=== PATIENT | male | born 1945 | race Caucasian/White ===

== ENCOUNTER → 2016-07-20 | Outpatient (CLI) | payer OTHER, MEDICARE | LOC: BMCIMAGING 12:46 | PROVIDERS: ATTEND Urology | DX: N28.1 Cyst of kidney, acquired (principal); Z85.51 Personal history of malignant neoplasm of bladder ==

== ENCOUNTER → 2017-03-27 | Outpatient (CLI) | payer OTHER, MEDICARE | LOC: FIMAGING 13:24 | PROVIDERS: ATTEND Registered Nurse | DX: J43.9 Emphysema, unspecified (principal) ==

== ENCOUNTER → 2017-06-05 | Outpatient (CLI) | payer OTHER, MEDICARE | LOC: FIMAGING 11:36 | PROVIDERS: ATTEND Family Medicine | DX: M19.012 Primary osteoarthritis, left shoulder (principal) ==

== ENCOUNTER → 2018-03-09 | Outpatient (CLI) | payer OTHER, MEDICARE | LOC: BHFA 09:15 | PROVIDERS: ATTEND Internal Medicine Cardiovascular Disease | DX: I27.20 Pulmonary hypertension, unspecified (principal) ==

== ENCOUNTER 2018-05-28 22:57 | Inpatient (IN) | payer OTHER, MEDICARE ==
[2018-05-28] MEDS ORDERED: IPRATROPIUM/ALBUTEROL 3 ML DEYVIAL ONE (23:03)
[2018-05-28] MEDS ORDERED: NS 1,000 ML IV ONE ×2 (23:05→23:19)
--- NOTE | 2018-05-28 23:05 | EDPHY ---
H & P Time Seen by Provider: 05/28/18 23:03 HPI/ROS: HPI CHIEF COMPLAINT: Shortness of breath HISTORY OF PRESENT ILLNESS: Patient is a 73-year-old male, presents emergency room by private vehicle shortness of breath. He states on he became short of breath with a cough. Rather nonproductive. He has not been sleeping as he has been having body aches and chills. States he does have some chest tightness. He has wheezing. Arrived to the emergency room at triage she had an O2 sat of 50%. He was immediately brought back to ER room 10. Right greeted him and placed on a non-rebreather. He does wear nighttime oxygen 2-3 L at night. Past Medical History: History of COPD, thyroid disease Past Surgical History: No recent surgery Social History: Occasional alcohol use, denies drugs or tobacco. Family History: Noncontributory ROS REVIEW OF SYSTEMS: 10 Systems were reviewed and negative with the exception of the elements mentioned in the history of present illness. Exam Constitutional triage nursing summary reviewed, vital signs reviewed, awake/ alert. 50% room air saturation respiratory distress, tachycardic 130s Eyes normal conjunctivae and sclera, EOMI, PERRLA. HENT normal inspection, atraumatic, moist mucus membranes, no epistaxis, neck supple/ no meningismus, no raccoon eyes. Respiratory respiratory distress, tachypnea, wheezing throughout lung [place]. Cardiovascular tachycardia, regular rhythm, no murmur, no edema, distal pulses normal. Gastrointestinal soft, non-tender, no rebound, no guarding, normal bowel sounds, no distension, no pulsatile mass. Genitourinary no CVA tenderness. Musculoskeletal no midline vertebral tenderness, full range of motion, no calf swelling, no tenderness of extremities, no meningismus, good pulses, neurovascularly intact. Skin pink, warm, & dry, no rash, skin atraumatic. Neurologic awake, alert and oriented x 3, AAOx3, moves all 4 extremities equally, motor intact, sensory intact, CN II-XII intact, normal cerebellar, normal vision, normal speech. Psychiatric normal mood/affect. Heme/Lymph/Immune no lymphadenopathy. Differential Diagnosis: Includes but is not limited to in a particular order pneumonia, influenza, PE, ACS, respiratory distress, COPD exacerbation Medical Decision Making: Plan for this patient IV establishment x2, electronic device monitor, EKG, supplemental oxygen, resuscitated for respiratory distress, DuoNeb breathing treatment, IV fluids, IV Solu-Medrol, check blood cultures lactic acid influenza. Patient will need to be admitted to the hospital. Re-evaluation: EKG interpretation by me on record in [facility] system. Impression time of EKG 2304, sinus tach 132 right ventricular hypertrophy present, ST depression noted to [address] depression noted V4 V5 V6 most likely strain pattern due to tachycardia and hypoxia. No ST elevation 2316: Patient here in respiratory distress with a room air saturation of 50% upon arrival. Tachypneic in the 30s, tachycardic in the 130s to 140s. Wheezing on exam. Will aggressively treat for respiratory distress with COPD exacerbation rule out pneumonia. D-dimer elevated 3.5. Given the patient's profound hypoxia, tachycardia, right heart strain on EKG will proceed with CT angiogram of the chest to make sure he does not Have pulmonary emboli. ED x-ray chest reviewed by myself this shows a left lower lobe infiltrate. Blood cultures have been pulled. IV Rocephin and IV azithromycin as been given. Critical Care: Total Critical Care Time Spent Managing this Patient: 65Minutes. This time was spent Exclusively with this patient. This Care was exclusive of procedures. The Organ System/life at risk was pulmonary. This Patient was in Critical Condition because severe hypoxia 50% room air sat , respiratory distress, tachycardia Plan for admission to the hospital. Patient re-examined at 12:01 a.m. Patient doing much improved, he is on 6 L nasal cannula, heart rate down to 116. O2 sat 92% on 6 L. Blood pressure 125/ 70. CT angiogram of the chest faxed me by direct Radiology at time 1:55 a.m. This shows numerous findings and please see full report. Pronounced diffuse centrilobular emphysema Small loculated pneumothorax along the left major fissure with abnormal lobular soft tissue along its margins raising the possibility of pleural metastases or lobular infectious etiology such as fungus ball Opacity in left lower lobe suspicious for aspiration and/or pneumonia Nonspecific areas of spiculated density in the central left upper lobe anterior left upper lobe anterior mid right medial lobe areas may reflect post inflammatory change scarring or areas of active infection primary pulmonary malignancy cannot be excluded Prominent hilar lymph nodes bilaterally PET imaging would be useful Coronary artery disease Atherosclerosis Patient presented the emergency room in respiratory distress with an O2 sat of 50% on room air by private vehicle in fact he came in [facility]. He arrives in respiratory distress breathing 30-40 times per minute, room air saturation was 50%. Wheezing audible at bedside. Patient was quickly assessed in ER room 10 and had a chest is shows left lower lobe pneumonia. Received IV Rocephin IV as a throat, IV Solu-Medrol, DuoNeb breathing treatment and supplemental oxygen. He was placed on 6 L nasal cannula after being on a non-rebreather for some time. He improved rather well over the evening. He was admitted to the ICU we were able to step-down to PCU. He continues to do well. He had a CT scan due to positive D-dimer this showed pneumonia additionally please see full dictation of CT report for numerous other findings. Admitted to the hospitalist service in stable condition. Source: Patient - Medical/Surgical History Hx Asthma: No Hx Chronic Respiratory Disease: No Hx Diabetes: No Hx Cardiac Disease: No Hx Renal Disease: No Hx Cirrhosis: No Hx Alcoholism: No Hx HIV/AIDS: No Hx Splenectomy or Spleen Trauma: No Other PMH: FLUISD IN LUNGS - Social History Smoking Status: Former smoker Constitutional: Initial Vital Signs Temperature (C) 37.5 C 05/28/18 23:01 Heart Rate 137 H 05/28/18 23:01 Respiratory Rate 30 H 05/28/18 23:01 Blood Pressure 124/76 H 05/28/18 23:01 O2 Sat (%) 95 05/28/18 23:01 O2 Delivery Mode Nasal Cannula O2 (L/minute) 3 Allergies/Adverse Reactions: No Known Allergies Allergy (Verified 05/29/18 09:01) Home Medications: Medication Instructions Recorded Levothyroxine [Synthroid 100 mcg 100 mcg PO DAILY06 10/23/15 (*)] Fluticasone/Salmeter 500/50Mcg 1 puffs IH BID 05/29/18 [Advair 500/50 (*)] Hydrochlorothiazide [HCTZ (*)] 25 mg PO DAILY 05/29/18 Medical Decision Making - Diagnostics Imaging Results: Imaging Impressions Chest X-Ray 05/28/18 23:05 Impression: Findings suspicious for pneumonia are seen superimposed upon underlying airways disease. Patient is scheduled for a follow-up CT scan of the chest. - Data Points Laboratory Results: Laboratory Results 05/29/18 11:00 05/29/18 11:00 05/29/18 05/29/18 11:00 11:00 WBC 10.29 10^3/uL H 10^3/uL (3.80-9.50) RBC 4.89 10^6/uL 10^6/uL (4.40-6.38) Hgb 14.0 g/dL g/dL (13.7-17.5) Hct 41.3 % % (40.0-51.0) MCV 84.5 fL fL (81.5-99.8) MCH 28.6 pg pg (27.9-34.1) MCHC 33.9 g/dL g/dL (32.4-36.7) RDW 13.3 % % (11.5-15.2) Plt Count 217 10^3/uL 10^3/uL (150-400) MPV 9.9 fL fL (8.7-11.7) Neut % (Auto) 92.0 % H % (39.3-74.2) Lymph % (Auto) 6.0 % L % (15.0-45.0) [place] % (Auto) 1.6 % L % (4.5-13.0) Eos % (Auto) 0.0 % L % (0.6-7.6) Baso % (Auto) 0.1 % L % (0.3-1.7) Nucleat RBC Rel Count 0.0 % % (0.0-0.2) Absolute Neuts (auto) 9.47 10^3/uL H 10^3/uL (1.70-6.50) Absolute Lymphs (auto) 0.62 10^3/uL L 10^3/uL (1.00-3.00) Absolute Monos (auto) 0.16 10^3/uL L 10^3/uL (0.30-0.80) Absolute Eos (auto) 0.00 10^3/uL L 10^3/uL (0.03-0.40) Absolute Basos (auto) 0.01 10^3/uL L 10^3/uL (0.02-0.10) Absolute Nucleated RBC 0.00 10^3/uL 10^3/uL (0-0.01) Immature Gran % 0.3 % % (0.0-1.1) Immature Gran # 0.03 10^3/uL 10^3/uL (0.00-0.10) Sodium 134 mEq/L L mEq/L (135-145) Potassium 3.7 mEq/L mEq/L (3.5-5.2) Chloride 99 mEq/L mEq/L (97-110) Carbon Dioxide 26 mEq/l mEq/l (22-31) Anion Gap 9 mEq/L mEq/L (6-14) BUN 21 mg/dL mg/dL (7-23) Creatinine 0.7 mg/dL mg/dL (0.7-1.3) Estimated GFR > 60 Glucose 246 mg/dL H mg/dL (70-100) Calcium 8.7 mg/dL mg/dL (8.5-10.4) Microbiology Results: MICROBIOLOGY 05/28/18 02:39 Nasal, Sinus - Swab Respiratory Panel (PCR) - Final No Organism Detected By Pcr Medications Given: Albuterol/Ipratropium (Duoneb) 3 ml IH QID EMMA Stop: 11/25/18 05:59 Last Admin: 05/29/18 21:16 Dose: 3 ml Azithromycin (Zithromax) 250 mg PO DAILY [facility] PRN Reason: Protocol Stop: 06/28/18 08:59 Last Admin: 05/29/18 09:03 Dose: 250 mg Enoxaparin Sodium (Lovenox) 40 mg SC DAILY EMMA Stop: 11/25/18 08:59 Last Admin: 05/29/18 11:04 Dose: 40 mg Ceftriaxone Sodium/Dextrose (Rocephin 1 Gm (Premix)) 50 mls @ 100 mls/hr IV DAILY [facility]MA PRN Reason: Protocol Stop: 06/28/18 08:59 Last Admin: 05/29/18 11:08 Dose: 50 mls Prednisone (Prednisone) 40 mg PO DAILY EMMA Stop: 11/25/18 08:59 Last Admin: 05/29/18 09:02 Dose: 40 mg Fluticasone/Salmeterol (Advair) 1 puffs IH BID EMMA Stop: 11/25/18 20:59 Last Admin: 05/29/18 21:23 Dose: 1 puffs Discontinued Medications Acetaminophen (Tylenol) 1,000 mg PO EDNOW ONE Stop: 05/28/18 23:21 Last Admin: 05/28/18 23:27 Dose: 1,000 mg Albuterol/Ipratropium (Duoneb) 3 ml IH EDNOW ONE Stop: 05/28/18 23:07 Last Admin: 05/28/18 23:08 Dose: 3 ml Furosemide (Lasix) 20 mg PO ONCE ONE Stop: 05/29/18 17:29 Last Admin: 05/29/18 18:26 Dose: 20 mg Sodium Chloride (Ns) 1,000 mls @ 0 mls/hr IV EDNOW ONE; Wide Open PRN Reason: Protocol Stop: 05/28/18 23:06 Last Admin: 05/28/18 23:08 Dose: 1,000 mls Azithromycin 500 mg/ Sodium (Chloride) 255 mls @ 255 mls/hr IV EDNOW ONE PRN Reason: Protocol Stop: 05/29/18 00:18 Last Admin: 05/28/18 23:55 Dose: 255 mls Ceftriaxone Sodium 2 gm/ (Sodium Chloride) 50 mls @ 100 mls/hr IV EDNOW ONE PRN Reason: Protocol Stop: 05/28/18 23:48 Last Admin: 05/28/18 23:26 Dose: 50 mls Sodium Chloride (Ns) 1,000 mls @ 0 mls/hr IV ONCE ONE PRN Reason: Wide Open Stop: 05/28/18 23:20 Last Admin: 05/28/18 23:28 Dose: 1,000 mls Methylprednisolone Sodium Succinate (Solu-Medrol) 125 mg IVP EDNOW ONE Stop: 05/28/18 23:07 Last Admin: 05/28/18 23:14 Dose: 125 mg Potassium Chloride (Klor-Con) 30 meq PO ONCE ONE PRN Reason: Protocol Stop: 05/29/18 20:04 Last Admin: 05/29/18 20:32 Dose: 30 meq Point of Care Test Results: Chemistry 05/28/18 23:21 POC Troponin I 0.03 ng/mL ng/mL (0.00-0.08) Departure - Departure Disposition: [facility] Inpatient Acute Clinical Impression: Hypoxia, Respiratory distress, Tachypnea, Acute respiratory failure with hypoxia Pneumonia Qualifiers: Pneumonia type: due to unspecified organism Laterality: unspecified laterality Lung location: unspecified part of lung Qualified Code(s): J18.9 - Pneumonia, unspecified organism Fever Qualifiers: Fever type: due to other condition Qualified Code(s): R50.81 - Fever presenting with conditions classified elsewhere COPD (chronic obstructive pulmonary disease) Qualifiers: COPD type: unspecified COPD Qualified Code(s): J44.9 - Chronic obstructive pulmonary disease, unspecified Condition: Critical
[2018-05-28] MEDS ORDERED: IPRATROPIUM/ALBUTEROL 3 ML DEYVIAL IH ONE (23:06)
[2018-05-28] MEDS ORDERED: methylPREDNISolone SOD SUCC 125 MG/2 ML VIAL IVP ONE (23:06)
[2018-05-28] MEDS ORDERED: AZITHROMYCIN IV 500 MG in NS 250 ML IV ONE (23:19)
[2018-05-28] MEDS ORDERED: ACETAMINOPHEN 500 MG TAB PO ONE (23:20)
[2018-05-28] MEDS ORDERED: cefTRIAXone 1 GM/DEXTROSE 1 GM/50 ML BAG IV ONE (23:24)
[2018-05-28 23:28] LABS: PLATELET COUNT 249 10^3/uL (150-400)
[2018-05-28 23:54] LABS: INR 1.1 (0.83-1.16); PROTIME(PATIENT) 13.8 SEC (12.0-15.0)
[2018-05-29] MEDS ORDERED: ONDANSETRON DISINTEGRATING 4 MG TAB PO PRN (00:08)
[2018-05-29] MEDS ORDERED: ALBUTEROL 3 ML DEYVIAL IH PRN (00:08)
[2018-05-29] MEDS ORDERED: ONDANSETRON 4 MG/2 ML VIAL IVP PRN (00:08)
[2018-05-29] MEDS ORDERED: ACETAMINOPHEN 325 MG TAB PO PRN (00:08)
[2018-05-29] MEDS ORDERED: IOPAMIDOL (ISOVUE-370) 150 ML BTL IV ONE (00:36)
--- NOTE | 2018-05-29 01:24 | PDGENHP ---
History and Physical - Chief Complaint Shortness of breath - History of Present Illness 73 yo M w/ hx of COPD presents with shortness of breath. The patient first noted body aches after 4 days ago. Over the last 4 days he then developed progressive SOB and dry cough. Tonight he thought he was hallucinating when he closed his eyes, suspected severe hypoxia, and came in to the ED for evaluation. Upon arrival to the ED he was indeed significantly hypoxic as well as febrile and wheezing. He improved significantly with steroids and nebulizer treatments. CXR demonstrates subtle LLL infiltrate. He is being admitted for presumed pneumonia and COPD exacerbation. Case discussed with ED physician Dr. Martinez; records reviewed and summarized above. History Information - Allergies/Home Medication List Allergies/Adverse Reactions: No Known Allergies Allergy (Unverified 10/23/15 12:08) Home Medications: Hydrochlorothiazide [HCTZ (*)] 12.5 mg PO DAILY 10/23/15 [Last Taken 10/23/15] Levothyroxine [Synthroid 100 mcg (*)] 100 mcg PO DAILY06 10/23/15 [Last Taken ] I have personally reviewed and updated: family history, medical history - Past Medical History COPD - Surgical History Additional surgical history: Bladder surgery - Family History Positive for: stroke - Social History Smoking Status: Former smoker Review of Systems Review of Systems: ROS: 10pt was reviewed & negative except for what was stated in HPI & below Physical Exam Physical Exam: Temp Pulse Resp BP Pulse Ox 37.0 C 110 H 28 H 125/70 H 91 L 05/28/18 23:55 05/29/18 00:21 05/29/18 00:21 05/29/18 00:21 05/29/18 00:21 O2 (L/minute) 6 Constitutional: no apparent distress, not in pain Eyes: PERRL, EOMI Ears, Nose, Mouth, Throat: moist mucous membranes, no oral mucosal ulcers Cardiovascular: regular rate and rhythym, no murmur, rub, or gallop Respiratory: no respiratory distress, expiratory wheeze (Mild) Skin: warm, normal color Musculoskeletal: full muscle strength, no muscle tenderness Neurologic: AAOx3, CN II-XII Intact Psychiatric: interacting appropriately, not anxious Lab Data & Imaging Review 05/28/18 23:12 05/28/18 23:12 WBC 9.49 10^3/uL (3.80-9.50) 05/28/18 23:12 RBC 5.65 10^6/uL (4.40-6.38) 05/28/18 23:12 Hgb 16.1 g/dL (13.7-17.5) 05/28/18 23:12 Hct 47.4 % (40.0-51.0) 05/28/18 23:12 MCV 83.9 fL (81.5-99.8) 05/28/18 23:12 MCH 28.5 pg (27.9-34.1) 05/28/18 23:12 MCHC 34.0 g/dL (32.4-36.7) 05/28/18 23:12 RDW 13.2 % (11.5-15.2) 05/28/18 23:12 Plt Count 249 10^3/uL (150-400) 05/28/18 23:12 MPV 9.9 fL (8.7-11.7) 05/28/18 23:12 Neut % (Auto) 86.2 % (39.3-74.2) H 05/28/18 23:12 Lymph % (Auto) 7.2 % (15.0-45.0) L 05/28/18 23:12 [place] % (Auto) 5.7 % (4.5-13.0) 05/28/18 23:12 Eos % (Auto) 0.3 % (0.6-7.6) L 05/28/18 23:12 Baso % (Auto) 0.4 % (0.3-1.7) 05/28/18 23:12 Nucleat RBC Rel Count 0.0 % (0.0-0.2) 05/28/18 23:12 Absolute Neuts (auto) 8.18 10^3/uL (1.70-6.50) H 05/28/18 23:12 Absolute Lymphs (auto) 0.68 10^3/uL (1.00-3.00) L 05/28/18 23:12 Absolute Monos (auto) 0.54 10^3/uL (0.30-0.80) 05/28/18 23:12 Absolute Eos (auto) 0.03 10^3/uL (0.03-0.40) 05/28/18 23:12 Absolute Basos (auto) 0.04 10^3/uL (0.02-0.10) 05/28/18 23:12 Absolute Nucleated RBC 0.00 10^3/uL (0-0.01) 05/28/18 23:12 Immature Gran % 0.2 % (0.0-1.1) 05/28/18 23:12 Immature Gran # 0.02 10^3/uL (0.00-0.10) 05/28/18 23:12 PT 13.8 SEC (12.0-15.0) 05/28/18 23:12 INR 1.10 (0.83-1.16) 05/28/18 23:12 APTT 31.2 SEC (23.0-38.0) 05/28/18 23:12 D-Dimer 3.54 ug/mLFEU (0.00-0.50) H 05/28/18 23:12 VBG Lactic Acid 1.7 mmol/L (0.7-2.1) 05/28/18 23:12 Sodium 131 mEq/L (135-145) L 05/28/18 23:12 Potassium 3.4 mEq/L (3.5-5.2) L 05/28/18 23:12 Chloride 90 mEq/L (97-110) L 05/28/18 23:12 Carbon Dioxide 27 mEq/l (22-31) 05/28/18 23:12 Anion Gap 14 mEq/L (6-14) 05/28/18 23:12 BUN 31 mg/dL (7-23) H 05/28/18 23:12 Creatinine 1.1 mg/dL (0.7-1.3) 05/28/18 23:12 Estimated GFR > 60 05/28/18 23:12 Glucose 157 mg/dL (70-100) H 05/28/18 23:12 Calcium 9.5 mg/dL (8.5-10.4) 05/28/18 23:12 Magnesium 1.9 mg/dL (1.6-2.3) 05/28/18 23:12 Total Bilirubin 1.2 mg/dL (0.1-1.4) 05/28/18 23:12 Conjugated Bilirubin 0.6 mg/dL (0.0-0.5) H 05/28/18 23:12 Unconjugated Bilirubin 0.6 mg/dL (0.0-1.1) 05/28/18 23:12 AST 38 IU/L (17-59) 05/28/18 23:12 ALT 41 IU/L (21-72) 05/28/18 23:12 Alkaline Phosphatase 108 IU/L (38-126) 05/28/18 23:12 POC Troponin I 0.03 ng/mL (0.00-0.08) 05/28/18 23:21 NT-Pro-B Natriuret Pep 414 pg/mL (0-125) H 05/28/18 23:12 Total Protein 7.6 g/dL (6.3-8.2) 05/28/18 23:12 Albumin 4.4 g/dL (3.5-5.0) 05/28/18 23:12 Procalcitonin 0.23 ng/mL (0.02-0.10) H 05/28/18 23:12 Nasal Influenza A PCR NEGATIVE FOR FLU A (NEGATIVE) 05/28/18 23:12 Nasal Influenza B PCR NEGATIVE FOR FLU B (NEGATIVE) 05/28/18 23:12 Visualized and Interpreted Chest x-ray results: Yes Chest X-Ray results: infiltrate (LLL) Visualized and Interpreted EKG results: Yes EKG Interpretation: Positive for: other (Sinus tach) Assessment & Plan Assessment: 73 yo M w/ COPD presents with COPD exacerbation and pneumonia. Plan: 1. COPD with acute exacerbation - Presents with severe respiratory distress, hypoxia, and evidence of pneumonia. Severe wheezing noted on arrival significantly improved with nebulizer treatments and steroids. - Prednisone, azithromycin x5 days - Duonebs QID, albuterol q2h PRN - CTPE ordered to evaluate elevated D-dimer 2. Sepsis 2/2 pneumonia - CXR (personally reviewed/interpreted) with subtle LLL infiltrate. Patient febrile, tachypneic, and tachycardic on admission (3/4 SIRS criteria). - S/p 30 mL/kg fluid bolus - CTX/Azithro for CAP coverage - Blood cultures, respiratory PCR, procalcitonin ordered 3. AHRF - 2/2 COPD exacerbation and pneumonia. Initially requiring ~6 L/min O2 with severe respiratory distress but improving significantly with treatment. - Acute treatment as noted above - Incentive spirometry ordered - Continue O2 PRN to maintain O2 sats > 89% 4. Hyponatremia - Likely due to dehydration and infection. - Repeat BMP after IVF Diet - Regular Code - Full Ppx - LMWH Dispo - Admit under observation status
--- NOTE | 2018-05-29 07:45 | CPEKG ---
Test Reason : OPEN Blood Pressure : / mmHG Vent. Rate : 132 BPM Atrial Rate : 133 BPM P-R Int : 135 ms QRS Dur : 097 ms QT Int : 308 ms P-R-T Axes : 051 108 -10 degrees QTc Int : 457 ms Sinus tachycardia Probable left atrial enlargement Consider right ventricular hypertrophy Borderline repol abnrm, inferolateral leads Confirmed by Stanford Smalls ([id number]) on 05/29/2018 7:44:07 AM Referred By: Stanford Samlls Confirmed By:Stanford Smalls
[2018-05-29] MEDS ORDERED: AZITHROMYCIN 250 MG TAB PO ONE (08:59)
[2018-05-29] MEDS: predniSONE 20 MG TAB PO SCH (09:02)
[2018-05-29] MEDS: AZITHROMYCIN 250 MG TAB PO SCH (09:03)
[2018-05-29] MEDS: IPRATROPIUM/ALBUTEROL 3 ML DEYVIAL IH SCH ×4 (09:04→21:16)
[2018-05-29] MEDS: ENOXAPARIN 40 MG/0.4 ML SYR SC SCH (11:04)
[2018-05-29 11:09] LABS: PLATELET COUNT 217 10^3/uL (150-400)
[2018-05-29] MEDS ORDERED: FUROSEMIDE 20 MG TAB PO ONE (17:28)
[2018-05-29] MEDS ORDERED: PROTOCOL MAGNESIUM 1 DOSE IV PRN (17:36)
[2018-05-29] MEDS ORDERED: PROTOCOL POTASSIUM 1 DOSE MISC PRN (17:36)
--- NOTE | 2018-05-29 17:47 | HOSPPROG ---
Hospitalist Progress Note Assessment/Plan: Evening hospitalist rounds I spent 40 min at bedside with the patient today in addition to the time spent earlier by Dr. Mari Foster on his admission activities In addition I reviewed his imaging studies in detail with Dr. Ismael Berman and reviewed his clinical picture with Dr. Berman The patient does feel notably better with less cough, less aches, and less dyspnea. He does tell me that he has had over many years time frequent episodes of bronchitis. He also tells me that he has been getting gradually more short of breath and has been noticed some weight gain along with swelling in his ankles and feeling bloated in his abdomen at times. I reviewed images from his CT scan chest today in addition to comparing those images with CT scan of chest in 2016 at this hospital. Reviewing back to 2016 he did have what appears to be some early bronchiectasis changes in both lungs. There is very mild emphysema apparent at that time in lung bases. At this time there is pneumonia in the left lower lobe but there is also what appears to be quite a bit of scarring from bronchiectasis in the left lower lobe, significant progression of bronchiectatic changes in both lungs, and progression of emphysema. In addition there is also an air pocket in trapped in the fissure between the left upper in lower lobes and within that air pocket there is focal rounded thickening 1 lesion on the superior aspect of left lower lobe and 1 on the inferior aspect of left upper lobe. This is a very unusual appearance. It causes uncertain. Consider possible infection such as fungal or other unusual infection, or perhaps inflammatory or malignant changes of the pleura membrane in that area. I would consider the possibility that he popped a small emphysematous bleb in to the interlobar fissure space and this was the source of the air, however the air could also come from a microorganism or otherwise. There is also a spiculated type lesion at the anterior left lung, subpleural, however this looks to me little change from 2016 overall. DIAGNOSES: * Acute community-acquired pneumonia * Progression of bronchiectasis and chronic bronchitis with some scarring at the left lung base since 2016 * Worsening of emphysema since [address] scan * Development of right-sided congestive heart failure suggesting likely pulmonary hypertension * Development of a air pocket in the fissure between left upper and lower lobes with concerning thickening of pleura suggesting potentially atypical infection or malignancy * Adenopathy of uncertain duration, likely related to the issues mentioned above * Spiculated lesion left lung anteriorly that does not appear much change since 2016 likely largely scar and related to bronchiectasis but other possible etiologies exist * Hyperglycemia likely largely related to his steroid use at this time PLANS: * I reviewed all the above in detail with the patient * I reviewed all the above in detail with Dr. Ismael Berman * Continue current antibiotics * Will decrease steroid dose at this time * Will change his hydrochlorothiazide to Lasix * Begin 2 g sodium diet * Increase activity as able * Dr. Berman will see the patient; expect he will recommend bronchoscopy * There may be some other serologic studies that would be helpful * Echocardiogram to assess right heart function and pulmonary pressures * The patient would benefit from referral to pulmonary rehab clinic OBJECTIVE Vitals reviewed: Stable without recurrence of fever so far [employer], 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 Exam: alert oriented skin warm dry color ok resps not labored lungs diminished and somewhat bronchitic BSs heart regular abd soft nondistended nontender, bowel sounds present limbs warm, some pitting edema of both legs iv site ok Lab data: White blood cell count little bit higher than yesterday 10.2 with predominance in neutrophils Blood sugar 246 this morning Microbiology: Cultures negative so far Negative for influenza a and B Objective: Vital Signs Temp Pulse Resp BP Pulse Ox 36.4 C 81 15 111/69 95 05/29/18 15:39 05/29/18 16:07 05/29/18 16:07 05/29/18 15:39 05/29/18 16:07 Laboratory Results 05/29/18 11:00 05/29/18 11:00 05/28/18 05/29/18 05/30/18 06:59 06:59 06:59 Intake Total 2100 Balance 2100 PT 13.8 SEC (12.0-15.0) 05/28/18 23:12 INR 1.10 (0.83-1.16) 05/28/18 23:12 ICD10 Worksheet Patient Problems: Problems Problem Status Onset Acute respiratory failure with hypoxia Acute COPD (chronic obstructive pulmonary disease) Acute Fever Acute Hypoxia Acute Pneumonia Acute Respiratory distress Acute Tachypnea Acute
--- NOTE | 2018-05-29 19:04 | GCON ---
[f rep st] CONSULTATION PULMONARY CONSULTATION DATE OF CONSULTATION: 05/29/2018 REASON FOR CONSULTATION: Pulmonary infiltrates, possible pneumonia, COPD. 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 He started smoking as a teenager and quit smoking approximately 3 years ago. He smoked about a half pack a day for 50 years. He was seen in our office by Dr. Angel in February of 2018. He was doing fairly well at that time. He last had a CT scan of the chest in [address] [facility]. This showed emphysema, but not significant pulmonary infiltrates, no bronchiectasis, no lymphade nopathy. Approximately 4 days ago, he noticed chills and rigors. This was associated with some shortness of b reath and cough occasionally productive of clear sputum. This was most significant when he lay down at night. He had some body aches related to his feet, legs and hips, and left back. Secondary to pe rsistent symptoms, he presented to the emergency department last night. He was noted to be significa ntly hypoxemic with wheezing. He was given supplemental oxygen, DuoNebs, and IV Solu-Medrol. Chest x-ray showed pulmonary infiltrates. D-dimer was elevated. A CT angiogram of the chest was done. Mu ltiple abnormalities were present. Compared to 2016, emphysema was unchanged. There was a more dens e left lower lobe infiltrate consistent with pneumonia and multiple areas of vague, spiculated densit ies in the left upper lobe, right middle lobe, and elsewhere. There were also areas of bronchiectasi s and atelectasis, hilar and mediastinal adenopathy, and an area of air in the fissure or cavitation on the left side, with 2 densities within this cavity. He was admitted to the PCU. He was started on azithromycin and ceftriaxone for community-acquired pn eumonia. He has remained on bronchodilator treatments and prednisone at 40 mg per day. He has also been given Lasix for increased peripheral edema. With the above therapies, he states he is feeling better. He has been on nasal cannula oxygen at 3 L . He denies significant shortness of breath or dyspnea on exertion at this point. He is occasionall y coughing up some whitish mucus. The patient has no exposures. He has had no recent travel. He lives alone in a house that he has be en in for 35 years. He traveled once this last year to [place] to see his sister. She was not ill. He has no pets. He denies water damage. PAST MEDICAL HISTORY: Remarkable for hypothyroidism and fluid retention. He has been on hydrochloro thiazide for lower extremity edema. He is on Advair 500/50 one inhalation twice a day. 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 No longer smoking. Significant alcohol denied. FAMILY HISTORY: Negative/noncontributory. REVIEW OF SYSTEMS: A 10-point review of systems is negative except as noted above. He specifically denies swallowing problems, vomiting or aspiration, or gastroesophageal reflux. There is no history of collagen vascular disease, chronic joint problems, etc. PHYSICAL EXAMINATION: GENERAL: Reveals a pleasant gentleman who is sitting comfortably in a chair. He is in no distress. Oxygen is in place at 3 L. Saturations are 95%. Blood pressure is approxima tely 120/60, heart rate 85 with sinus rhythm on the monitor. Respiratory rate is 16. He is afebrile . HEENT: Unremarkable for lymphadenopathy or thyromegaly. There was no jugular venous distention. CHEST: The chest is basically clear. Excursions and breath sounds are relatively normal. Expirato ry phase is prolonged. There may be a few rales anteriorly over the middle lobe? These are quite fa int if present. With voluntary cough, there is mild central airway congestion. HEART: Regular in r ate and rhythm without significant murmur or gallop. ABDOMEN: Soft and nontender. There is no obvi ous organomegaly. Bowel sounds are present. EXTREMITIES: Remarkable for compression stockings bein g in place. There is 1+ peripheral edema. DATA BASE: CT scan is as outlined above with multiple abnormalities, infiltrates, adenopathy, and ca vitary lesion with densities within this. White blood cell count is 10,300, hematocrit 41. Platelets are 217,000. PT and PTT were normal on a dmission, D-dimer elevated. Initial lactate was 1.7. Sodium is 134, potassium 3.7, BUN 21, creatini ne 0.7. Glucose is between 150 and 250, probably secondary to steroids. Troponin is negative. Proc alcitonin was 0.23, BNP near normal at 414. Liver function studies are normal. Albumin is 4.4. Inf luenza A/B was negative. A respiratory PCR was negative. Blood cultures are pending. ASSESSMENT: 1. Abnormal CT scan of the chest with multiple pulmonary infiltrates, some areas of bronchiectasis a nd chronic change, mediastinal and hilar adenopathy, and a cavitary lesion on the left or intrafissur al collection of air with densities within it. The etiology for these changes is/are unclear. Two a nd half years ago, his CT scan was fairly normal. In the interim, he has had no significant progress cresencio symptoms, becoming ill only recently if his history is accurate. Bacterial infection/pneumonia i s certainly possible, as is atypical infection with fungal organisms or mycobacterial disease. [facility] hoscopy will be needed. 2. Presumed pneumonia, likely related to his area of consolidation in the left lower lobe. This like ly would represent a community-acquired pneumonia. Current antibiotics are appropriate. 3. Chronic obstructive pulmonary disease/emphysema. Secondary to a long history of tobacco abuse. He is on oxygen at night at home and on inhaled therapies. He was doing quite well by his history un til the last several days. PLAN/RECOMMENDATIONS: Antibiotics and bronchodilator therapies will be continued. Oxygen will be co ntinued. Bronchoscopy will be performed. The timing of this is to be determined. I will check josé miguel rrow with Endoscopy. If possible, this will be done tomorrow afternoon. All of the above was discussed with the patient. Further plans and recommendations will be made based on his progress over the next 12 to 24 hours, an d on findings of the upcoming bronchoscopy. /[id number]/MODL
[2018-05-29] MEDS ORDERED: POTASSIUM CL 10 MEQ TAB PO ONE (20:03)
--- NOTE | 2018-05-29 20:29 | PDMN ---
Medical Necessity Medical necessity: Change to IP, as of 05/29/18, per & MCG [id number]; los >2 mn for ongoing management of community-acquired pneumonia, development of R-sided CHF suggesting pulmonary htn, multiple pulmonary infiltrates/abnormalities on CT ; requiring further workup/monitoring, Pulmonology consult w/bronch, IV abx & respiratory supportive care; hx COPD, worsening emphysema
[2018-05-29] MEDS: FLUTICASONE/SALMETER 500/50MCG DISKUS IH SCH (21:23)
[2018-05-30 04:37] LABS: PLATELET COUNT 255 10^3/uL (150-400)
[2018-05-30] MEDS: IPRATROPIUM/ALBUTEROL 3 ML DEYVIAL IH SCH ×4 (05:50→21:31)
[2018-05-30] MEDS: LEVOTHYROXINE 100 MCG TAB PO SCH (06:55)
[2018-05-30] MEDS ORDERED: POTASSIUM CL 10 MEQ TAB PO ONE ×2 (07:32→21:01)
[2018-05-30] MEDS: AZITHROMYCIN 250 MG TAB PO SCH (08:51)
[2018-05-30] MEDS: predniSONE 20 MG TAB PO SCH (08:52)
[2018-05-30] MEDS ORDERED: FUROSEMIDE 40 MG TAB PO SCH (09:00)
[2018-05-30] MEDS: FLUTICASONE/SALMETER 500/50MCG DISKUS IH SCH ×2 (10:18→21:28)
--- NOTE | 2018-05-30 11:28 | HOSPPROG ---
Hospitalist Progress Note Assessment/Plan: DIAGNOSES: * Acute community-acquired pneumonia * Acute encephalopathy with hallucinations, started at home with this acute illness * Progression of bronchiectasis and chronic bronchitis with some scarring at the left lung base since 2016 * Worsening of emphysema since [address] scan * Development of right-sided congestive heart failure suggesting likely pulmonary hypertension * Development of a air pocket in the fissure between left upper and lower lobes with concerning thickening of pleura suggesting potentially atypical infection or malignancy * Adenopathy of uncertain duration, likely related to the issues mentioned above * Spiculated lesion left lung anteriorly that does not appear much change since 2016 likely largely scar and related to bronchiectasis but other possible etiologies exist * Hyperglycemia likely largely related to his steroid use at this time PLANS: * I reviewed all the above in detail with the patient * I reviewed all the above in detail with Dr. Ismael Berman * Continue current antibiotics * Bronchoscopy this afternoon * Will decrease steroid dose at this time * Continue Lasix, discontinued hydrochlorothiazide * Begin 2 g sodium diet * Increase activity as able * Avoid sedating medicines or other medicines with PRODUCT DEVELOPMENT CARPENTER side effects, will try to help him get better sleep tonight * The patient would benefit from referral to pulmonary rehab clinic SUBJECTIVE: Patient says his breathing is approximately the same as yesterday Some chills last night Also today mentions that he has been having some visual hallucinations that started around 3 days ago at home, primarily noticed when his eyes are closed but he sees various injury type images. 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, 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 Exam: alert oriented, no signs of confusion anxiety or agitation; no tremor or other physical signs of withdrawal skin warm dry color ok resps not labored lungs diminished BSs, minimal fine rales heart regular abd soft nondistended nontender, bowel sounds present limbs warm, a bit less pitting edema after diuresis iv site ok Lab data: wbc 12 K, normal Hg and plts CRP was ordered as highly sensitive, result > 15; ESR 57 Rheum Factor 20 Procalcitonin 23 Microbiology: Cultures negative so far Negative for influenza a and B K and Mg good Echocardiogram: I reviewed results of an echocardiogram done in March of this year Pulmonary pressures were elevated at 50, with moderately dilated right ventricle He has mild aortic stenosis with peak gradient 24 mean 14, and some calcific valve s sclerosis at that position LV chambers were normal in size and EF at 59% Objective: Vital Signs Temp Pulse Resp BP Pulse Ox 36.3 C 85 12 108/56 L 91 L 05/30/18 07:59 05/30/18 10:19 05/30/18 10:19 05/30/18 07:59 05/30/18 10:19 Laboratory Results 05/30/18 03:40 05/30/18 03:40 05/29/18 05/30/18 05/31/18 06:59 06:59 06:59 Intake Total 2050 Output Total 325 Balance 1725 PT 13.8 SEC (12.0-15.0) 05/28/18 23:12 INR 1.10 (0.83-1.16) 05/28/18 23:12 - Time Spent With Patient Time Spent with Patient: greater than 35 minutes Time Spent with Patient: Greater than 35 minutes spent on this patients care, greater than 50% of time spent counseling, educating, and coordinating care regarding the above mentioned plan. ICD10 Worksheet Patient Problems: Problems Problem Status Onset Acute respiratory failure with hypoxia Acute COPD (chronic obstructive pulmonary disease) Acute Chronic Disease Mgmt/Transitional care Acute Fever Acute Hypoxia Acute Pneumonia Acute Respiratory distress Acute Tachypnea Acute
--- NOTE | 2018-05-30 14:37 | ASMTCMCOM ---
CM Note CM Note Notes: Pts case discussed in tx rounds. Pt is a 73 y/o man admitted for PNA, SOB and hypoxia. Pt will most likely d/c independent when medically stable. No therapies ordered at this time. CM available for changes. Plan: Independent Date Signed: 05/30/2018 02:37 PM Electronically Signed By:CANDACE Walker
[2018-05-30] MEDS ORDERED: NS 500 ML IV ONE (15:12)
[2018-05-30] MEDS ORDERED: EPINEPHrine 1 MG/ML INJ ONE (15:48)
[2018-05-30] MEDS ORDERED: MIDAZOLAM 2 MG/2 ML VIAL ONE (15:49)
[2018-05-30] MEDS ORDERED: LIDOCAINE 1% 300 MG/30 ML SDV ONE (15:49)
[2018-05-30] MEDS ORDERED: fentaNYL 100 MCG/2 ML INJ ONE (15:49)
--- NOTE | 2018-05-30 16:00 | PDHPUP ---
History & Physical Update H&P update statement: This history and physical update is based on an assessment of the patient which was completed after admission or registration (within 24 hours), but prior to the surgery/procedure. H&P update: H&P reviewed & patient examined, no change in patient's condition since H&P completed
--- NOTE | 2018-05-30 16:00 | PDPROPOC ---
Sedation Plan of Care Sedation Plan of Care: vital signs stable, mental status noted, patient educated of risks, benefits, alternatives, patient can tolerate sedation ASA Classification: ASA 2 Planned drugs: fentanyl, midazolam Mallampati Score: Class 1 Mallampati Reference Image:
[2018-05-30] MEDS ORDERED: fentaNYL 100 MCG/2 ML INJ IVP ONE (16:40)
[2018-05-30] MEDS ORDERED: MIDAZOLAM 2 MG/2 ML VIAL IVP ONE (16:40)
--- NOTE | 2018-05-30 18:38 | GPN ---
[f rep st] PROCEDURE NOTE DATE OF PROCEDURE: 05/30/2018 PROCEDURE: Bronchoscopy. INDICATION: Bilateral pulmonary infiltrates, including a cavitary type lesion on the right with dens ities within it, possibly suggesting aspergilloma? PROCEDURE NOTE: The procedure was performed in the Endoscopy Unit. Informed consent was obtained fr om the patient. Appropriate time-out was performed. N95 masks were worn. Topical anesthesia includ ed 5 cc of 4% lidocaine to the posterior oropharynx and approximately 20 cc of 1% lidocaine to the vo altaf cords and lower tracheobronchial tree. Conscious sedation included 4 mg of Versed and 100 mcg of fentanyl. The fiberoptic bronchoscope was passed via bite block orally in the larynx. The vocal cords were sandra ntified. The vocal cords moved normally with cough and respiration. The bronchoscope was then advan salvador into the trachea and into the lower tracheobronchial tree bilaterally. There were loose, whitish secretions coating the airways bilaterally. These were removed with suction and lavage. Secretions were equal on both sides. There was no mucus plugging. There were no endobronchial lesions. There was no evidence of extrinsic compression. The airway mucosa was not particularly erythematous nor e dematous. Bronchial washing samples and distal bronchoalveolar lavage samples were obtained from the lower lobes and upper lobes bilaterally and combined. Appropriate samples including cytologies, spe cial stains for fungus and AFB and cultures were sent. There were no complications. Vital signs and oxygen saturations on supplemental oxygen remained normal throughout the procedure. IMPRESSION: 1. Bilateral secretions were present. 2. No endobronchial lesions. 3. Appropriate samples were obtained and sent to the laboratory. /[id number]/MODL
[2018-05-30] MEDS: MELATONIN 3 MG TAB PO SCH (20:51)
[2018-05-31] MEDS: LEVOTHYROXINE 100 MCG TAB PO SCH (05:42)
[2018-05-31] MEDS: IPRATROPIUM/ALBUTEROL 3 ML DEYVIAL IH SCH ×4 (05:49→20:27)
[2018-05-31] MEDS: AZITHROMYCIN 250 MG TAB PO SCH (09:23)
[2018-05-31] MEDS: FUROSEMIDE 20 MG TAB PO SCH (09:23)
[2018-05-31] MEDS: predniSONE 20 MG TAB PO SCH (09:23)
[2018-05-31] MEDS: ENOXAPARIN 40 MG/0.4 ML SYR SC SCH (09:23)
--- NOTE | 2018-05-31 09:38 | HOSPPROG ---
Hospitalist Progress Note Assessment/Plan: DIAGNOSES: * Acute community-acquired pneumonia * Acute encephalopathy with hallucinations, started at home with this acute illness: Have now resolved * Progression of bronchiectasis and chronic bronchitis with some scarring at the left lung base since 2016 * Worsening of emphysema since [address] scan * Development of right-sided congestive heart failure suggesting likely pulmonary hypertension * Development of a air pocket in the fissure between left upper and lower lobes with concerning thickening of pleura suggesting potentially atypical infection or malignancy * Adenopathy of uncertain duration, likely related to the issues mentioned above * Spiculated lesion left lung anteriorly that does not appear much change since 2016 likely largely scar and related to bronchiectasis but other possible etiologies exist * Hyperglycemia likely largely related to his steroid use at this time PLANS: * CT scan of head is scheduled for today, will review result that * Continue current antibiotic * Continue Lasix, discontinued hydrochlorothiazide * 2 g sodium diet * Avoid sedating medicines or other medicines with INDUSTRIAL ENGINEERING MANAGER side effects, will try to help him get better sleep tonight * The patient would benefit from referral to pulmonary rehab clinic * Will review with Dr. Berman timing of discharge; patient had a appointment scheduled next week with Dr. 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, 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 Exam: alert oriented, relaxed skin warm dry color ok resps not labored lungs diminished BSs, minimal fine rales heart regular abd soft nondistended nontender, bowel sounds present limbs warm, a bit less pitting edema after diuresis iv site ok Lab data: Electrolytes okay Microbiology: Cultures negative so far Negative for influenza a and B Echocardiogram: I reviewed results of an echocardiogram done in March of this year Pulmonary pressures were elevated at 50, with moderately dilated right ventricle He has mild aortic stenosis with peak gradient 24 mean 14, and some calcific valve s sclerosis at that position LV chambers were normal in size and EF at 59% Objective: Vital Signs Temp Pulse Resp BP Pulse Ox 36.6 C 92 18 113/88 H 92 05/31/18 08:00 05/31/18 08:00 05/31/18 08:00 05/31/18 08:00 05/31/18 08:00 Microbiology 05/30/18 16:30 Gram Stain - Final Bronchial Washing - Bilateral Lobes Laboratory Results 05/30/18 03:40 05/31/18 03:26 05/30/18 05/31/18 06/01/18 06:59 06:59 06:59 Intake Total 2050 1250 Output Total 325 1200 Balance 1725 50 PT 13.8 SEC (12.0-15.0) 05/28/18 23:12 INR 1.10 (0.83-1.16) 05/28/18 23:12 ICD10 Worksheet Patient Problems: Problems Problem Status Onset Acute respiratory failure with hypoxia Acute COPD (chronic obstructive pulmonary disease) Acute Chronic Disease Mgmt/Transitional care Acute Fever Acute Hypoxia Acute Pneumonia Acute Respiratory distress Acute Tachypnea Acute
[2018-05-31] MEDS: FLUTICASONE/SALMETER 500/50MCG DISKUS IH SCH ×2 (10:30→17:03)
--- NOTE | 2018-05-31 16:14 | SOAPPROG ---
SOAP Progress Note Assessment/Plan: Assessment: Multi focal pulmonary infiltrates. Pseudomonas starting to grow from bronch. Ceftriaxone not effective. Will change to cefepime. Continue bronchopulmonary therapies. Await further bronchoscopy results. Consider ID consult, but will await sensitivities. Hypoxemia: Secondary to 1. COPD/emphysema. Possible cavity on CT scan with densities within. Fungal cultures for Aspergillus pending. Plan: DC ceftriaxone, start cefepime. Continue bronchopulmonary therapies. Await further results from bronchoscopy. Follow x-ray. Continue diuresis with low-dose Lasix. Follow laboratory. 05/31/18 16:43 Subjective: Feels about the same. Less cough and mucus after the bronchoscopy. Slightly more short of breath. Hallucinations have been much better, not present last night. Objective: Vital Signs Temp Pulse Resp BP Pulse Ox 36.8 C 101 H 18 111/69 94 05/31/18 15:57 05/31/18 15:57 05/31/18 15:57 05/31/18 15:57 05/31/18 15:57 Microbiology 05/30/18 16:30 Gram Stain - Final Bronchial Washing - Bilateral Lobes 05/30/18 16:30 Mycobacterial Smear (BRYCE) - Final Lung Bilateral - Bronchial Washings Laboratory Results 05/30/18 03:40 05/31/18 03:26 05/30/18 05/31/18 06/01/18 05:59 05:59 05:59 Intake Total 2050 1250 350 Output Total 325 1200 800 Balance 1725 50 -450 PT 13.8 SEC (12.0-15.0) 05/28/18 23:12 INR 1.10 (0.83-1.16) 05/28/18 23:12 Bronch results: Gm stain shows 4+ polys, no organisms. Sputum starting to grow Pseudomonas. Sensitivities pending. All other samples are outstanding. Laboratory Tests 05/30/18 05/30/18 05/30/18 03:40 03:40 03:40 ESR 57 H C-React Prot High Sens > 15.0 Rheum Factor Semi-Quant 20.1 H GARDENIA Screen 0.50 Physical Exam - Physical Exam General Appearance: alert, no apparent distress EENT: other (Nasal cannula oxygen in place at 4 L) Neck: normal inspection (No JVD) Respiratory: normal breath sounds (Good excursions), rales (Few scattered rales present at bases, anteriorly), wheezing (Minimal wheezing present) Cardiac/Chest: regular rate, rhythm Abdomen: normal bowel sounds, non-tender, soft Skin: normal color, warm/dry Extremities: pedal edema Neuro/Psych: no motor/sensory deficits, No cognition abnormalities ICD10 Worksheet Patient Problems: Problems Problem Status Onset Chronic Disease Mgmt/Transitional care Acute Pneumonia Acute Hypoxia Acute Respiratory distress Acute Fever Acute Tachypnea Acute COPD (chronic obstructive pulmonary disease) Acute Acute respiratory failure with hypoxia Acute
[2018-05-31] MEDS: CEFEPIME HCL 2 GM in NS 100 ML IV SCH (21:39)
[2018-05-31] MEDS: MELATONIN 3 MG TAB PO SCH (21:40)
[2018-06-01 05:15] LABS: PLATELET COUNT 270 10^3/uL (150-400)
[2018-06-01] MEDS: LEVOTHYROXINE 100 MCG TAB PO SCH (05:21)
[2018-06-01] MEDS: CEFEPIME HCL 2 GM in NS 100 ML IV SCH ×3 (05:21→21:24)
[2018-06-01] MEDS: IPRATROPIUM/ALBUTEROL 3 ML DEYVIAL IH SCH ×4 (06:23→21:24)
[2018-06-01] MEDS ORDERED: POTASSIUM CL 10 MEQ TAB PO ONE (07:51)
[2018-06-01] MEDS: FLUTICASONE/SALMETER 500/50MCG DISKUS IH SCH ×2 (08:55→21:24)
[2018-06-01] MEDS: AZITHROMYCIN 250 MG TAB PO SCH (09:35)
[2018-06-01] MEDS: ENOXAPARIN 40 MG/0.4 ML SYR SC SCH (09:35)
[2018-06-01] MEDS: FUROSEMIDE 20 MG TAB PO SCH (09:35)
[2018-06-01] MEDS: predniSONE 20 MG TAB PO SCH (09:35)
--- NOTE | 2018-06-01 14:06 | ASMTCMCOM ---
CM Note CM Note Notes: Spoke with RN regarding pt's dispo. Pt admitted for PNA, SOB. Lives independently. No therapies ordered; Pt independent in the room. Pt to discharge home independently. Pt comfortable with this plan. D/C Date TBD. CM to follow. D/C Plan: Independent. Date Signed: 06/01/2018 02:05 PM Electronically Signed By:Radha Muller
--- NOTE | 2018-06-01 15:17 | HOSPPROG ---
Hospitalist Progress Note Assessment/Plan: DIAGNOSES: * Acute community-acquired pneumonia with Pseudomonas in a patient with moderately severe bronchiectatic airways disease * Acute hypoxemic respiratory failure * Acute encephalopathy with hallucinations, started at home with this acute illness: Have nearly resolved * Progression of bronchiectasis and chronic bronchitis with some scarring at the left lung base since 2016 * Worsening of emphysema since [address] scan * Development of right-sided congestive heart failure suggesting likely pulmonary hypertension * Development of a air pocket in the fissure between left upper and lower lobes with concerning thickening of pleura suggesting potentially atypical infection or malignancy * Adenopathy of uncertain duration, noted on CT scan chest, likely related to the issues mentioned above * Spiculated lesion left lung anteriorly that does not appear much change since 2016 likely largely scar and related to bronchiectasis but other possible etiologies exist * Hyperglycemia likely largely related to his steroid use at this time PLANS: * Antibiotics switched to cefepime while we await antibiotic sensitivities on Pseudomonas * Continue Lasix, discontinued hydrochlorothiazide * 2 g sodium diet * Avoid sedating medicines or other medicines with COATER OPERATOR side effects, will try to help him get better sleep tonight * Repeat CT scan probably in 2 days to reassess his lungs * The patient would benefit from referral to pulmonary rehab clinic * Will review with Dr. Berman timing of discharge; patient had a appointment scheduled next week with Dr. Frank Angel for PFTs but pt canceled that appointment, will need to reset that and further follow-up I have in detail with Dr. 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, 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 Exam: alert oriented, relaxed skin warm dry color ok resps not labored lungs diminished BSs, no rales or wheeze heart regular abd soft nondistended nontender, bowel sounds present limbs warm, a bit less pitting edema after diuresis iv site ok Lab data: Electrolytes okay Microbiology: Pseudomonas current now growing from bronchoscopy culture Negative for influenza a and B Echocardiogram: I reviewed results of an echocardiogram done in March of this year Pulmonary pressures were elevated at 50, with moderately dilated right ventricle He has mild aortic stenosis with peak gradient 24 mean 14, and some calcific valve s sclerosis at that position LV chambers were normal in size and EF at 59% Imaging: I reviewed images from CT scan in no signs of malignancy, hemorrhage or other significant intracranial abnormality I reviewed images from chest x-ray done today. There is improvement in the infiltrates at the bases particularly notable in the left compared to the admission chest x-ray Objective: Vital Signs Temp Pulse Resp BP Pulse Ox 36.6 C 94 20 115/72 90 L 06/01/18 14:57 06/01/18 14:57 06/01/18 14:57 06/01/18 14:57 06/01/18 11:18 Microbiology 05/30/18 16:30 Gram Stain - Final Bronchial Washing - Bilateral Lobes 05/30/18 16:30 Mycobacterial Smear (BRYCE) - Final Lung Bilateral - Bronchial Washings Laboratory Results 06/01/18 04:50 06/01/18 04:50 05/31/18 06/01/18 06/02/18 06:59 06:59 06:59 Intake Total 1250 1600 Output Total 1200 1500 Balance 50 100 PT 13.8 SEC (12.0-15.0) 05/28/18 23:12 INR 1.10 (0.83-1.16) 05/28/18 23:12 - Time Spent With Patient Time Spent with Patient: greater than 35 minutes Time Spent with Patient: Greater than 35 minutes spent on this patients care, greater than 50% of time spent counseling, educating, and coordinating care regarding the above mentioned plan. ICD10 Worksheet Patient Problems: Problems Problem Status Onset Acute respiratory failure with hypoxia Acute COPD (chronic obstructive pulmonary disease) Acute Chronic Disease Mgmt/Transitional care Acute Fever Acute Hypoxia Acute Pneumonia Acute Respiratory distress Acute Tachypnea Acute
--- NOTE | 2018-06-01 16:03 | SOAPPROG ---
SOAP Progress Note Assessment/Plan: Assessment: Multi focal pulmonary infiltrates. Pseudomonas growing from bronch. On cefepime since yesterday. Continue bronchopulmonary therapies. Await further bronchoscopy results. Consider ID consult, but will await sensitivities. Hypoxemia: Secondary to 1. COPD/emphysema. On bronchodilator therapies, low-dose prednisone. Possible cavity on CT scan with densities within. Fungal cultures for Aspergillus pending, as are Aspergillus antibodies. Plan: Continue cefepime. Continue bronchopulmonary therapies. Await further results from bronchoscopy. Follow x-ray intermittently. Continue diuresis with low-dose Lasix. Follow laboratory as needed. I will continue present treatment over the next several days, into early next week. A follow-up CT scan of the chest will likely be done on Monday. All the above was discussed with the patient. Subjective: Feels better. No hallucinations overnight. Slept better. Less cough and mucus , minimal now. Denies chest pain. Objective: Vital Signs Temp Pulse Resp BP Pulse Ox 36.6 C 61 16 115/72 93 06/01/18 14:57 06/01/18 15:42 06/01/18 15:42 06/01/18 14:57 06/01/18 15:42 Microbiology 05/30/18 16:30 Gram Stain - Final Bronchial Washing - Bilateral Lobes 05/30/18 16:30 Mycobacterial Smear (BRYCE) - Final Lung Bilateral - Bronchial Washings Laboratory Results 06/01/18 04:50 06/01/18 04:50 05/31/18 06/01/18 06/02/18 05:59 05:59 05:59 Intake Total 1250 1600 Output Total 1200 1500 Balance 50 100 PT 13.8 SEC (12.0-15.0) 05/28/18 23:12 INR 1.10 (0.83-1.16) 05/28/18 23:12 CXR: Improving bilateral infiltrates. Bronchial washings: Pseudomonas. Sensitivities are not yet back. Cytologies pending. AFB stain is negative. A yeast species is starting to grow: Probably will be nonspecific Luna. Physical Exam - Physical Exam General Appearance: alert, no apparent distress, other (Up in the chair.) EENT: PERRL/EOMI, other (Nasal cannula in place at 3 L) Neck: normal inspection (No JVD) Respiratory: decreased breath sounds, rales (Few scattered rales are present anteriorly and posteriorly), wheezing (Minimal wheezing present), No rhonchi Cardiac/Chest: regular rate, rhythm, No gallop Abdomen: normal bowel sounds, non-tender, soft Skin: normal color, warm/dry Extremities: pedal edema (Improving. Compression stockings in place) Neuro/Psych: no motor/sensory deficits, No cognition abnormalities ICD10 Worksheet Patient Problems: Problems Problem Status Onset Chronic Disease Mgmt/Transitional care Acute Pneumonia Acute Hypoxia Acute Respiratory distress Acute Fever Acute Tachypnea Acute COPD (chronic obstructive pulmonary disease) Acute Acute respiratory failure with hypoxia Acute
[2018-06-01] MEDS: MELATONIN 3 MG TAB PO SCH (21:24)
[2018-06-02] MEDS: CEFEPIME HCL 2 GM in NS 100 ML IV SCH ×3 (05:41→21:20)
[2018-06-02] MEDS: LEVOTHYROXINE 100 MCG TAB PO SCH (05:41)
[2018-06-02] MEDS: IPRATROPIUM/ALBUTEROL 3 ML DEYVIAL IH SCH ×4 (05:52→21:13)
[2018-06-02] MEDS: FLUTICASONE/SALMETER 500/50MCG DISKUS IH SCH ×2 (08:49→21:18)
[2018-06-02] MEDS: ENOXAPARIN 40 MG/0.4 ML SYR SC SCH (11:19)
[2018-06-02] MEDS: FUROSEMIDE 20 MG TAB PO SCH (11:19)
[2018-06-02] MEDS: predniSONE 10 MG TAB PO SCH (11:20)
--- NOTE | 2018-06-02 17:21 | HOSPPROG ---
Hospitalist Progress Note Assessment/Plan: DIAGNOSES: * Acute community-acquired pneumonia with Pseudomonas in a patient with moderately severe bronchiectatic airways disease * Acute hypoxemic respiratory failure * Acute encephalopathy with hallucinations, started at home with this acute illness: Have nearly resolved * Progression of bronchiectasis and chronic bronchitis with some scarring at the left lung base since 2016 * Worsening of emphysema since [address] scan * Development of right-sided congestive heart failure suggesting likely pulmonary hypertension * Development of a air pocket in the fissure between left upper and lower lobes with concerning thickening of pleura suggesting potentially atypical infection or malignancy - pending fungal cultures * Adenopathy of uncertain duration, noted on CT scan chest, likely related to the issues mentioned above * Spiculated lesion left lung anteriorly that does not appear much change since 2016 likely largely scar and related to bronchiectasis but other possible etiologies exist * Hyperglycemia likely largely related to his steroid use at this time PLANS: * Antibiotics switched to cefepime while we await antibiotic sensitivities on Pseudomonas * Await fungal cultures, may need to treat for that * Continue Lasix but will increase dose at this time * 2 g sodium diet * Compression stocking * Avoid sedating medicines or other medicines with OYSTER WORKER side effects * Repeat CT scan in next few days to reassess his lungs * The patient would benefit from referral to pulmonary rehab clinic SUBJECTIVE: Ambulating well Gets very hypoxemic with ambulation Sleeping better No pain OBJECTIVE Vitals reviewed: stable w/o fever Oxygen: still requiring 3 L NC at times more at rest, desat 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, 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 Little diuresis on I&O so far Exam: alert oriented, relaxed skin warm dry color ok resps not labored lungs diminished BSs, no rales or wheeze heart regular abd soft nondistended nontender, bowel sounds present limbs warm, still with pitting edema bilaterally iv site ok LAB DATA: Electrolytes okay MICROBIOLOGY: Pseudomonas current now growing from bronchoscopy culture Negative for influenza a and B Fungal cultures pending ECHOCARDIOGRAM: I reviewed results of an echocardiogram done in March of this year Pulmonary pressures were elevated at 50, with moderately dilated right ventricle He has mild aortic stenosis with peak gradient 24 mean 14, and some calcific valve s sclerosis at that position LV chambers were normal in size and EF at 59% IMAGING: I reviewed images from CT scan in no signs of malignancy, hemorrhage or other significant intracranial abnormality I reviewed images from chest x-ray done today. There is improvement in the infiltrates at the bases particularly notable in the left compared to the admission chest x-ray Objective: Vital Signs Temp Pulse Resp BP Pulse Ox 36.3 C 82 18 122/76 H 95 06/02/18 15:34 06/02/18 15:34 06/02/18 15:34 06/02/18 15:34 06/02/18 15:34 Microbiology 05/30/18 16:30 Gram Stain - Final Bronchial Washing - Bilateral Lobes Bronchial Culture - Final Pseudomonas Aeruginosa Laboratory Results 06/01/18 04:50 06/02/18 03:10 06/01/18 06/02/18 06/03/18 06:59 06:59 06:59 Intake Total 1600 120 Output Total 1500 Balance 100 120 PT 13.8 SEC (12.0-15.0) 05/28/18 23:12 INR 1.10 (0.83-1.16) 05/28/18 23:12 - Time Spent With Patient Time Spent with Patient: greater than 35 minutes Time Spent with Patient: Greater than 35 minutes spent on this patients care, greater than 50% of time spent counseling, educating, and coordinating care regarding the above mentioned plan. ICD10 Worksheet Patient Problems: Problems Problem Status Onset Acute respiratory failure with hypoxia Acute COPD (chronic obstructive pulmonary disease) Acute Chronic Disease Mgmt/Transitional care Acute Fever Acute Hypoxia Acute Pneumonia Acute Respiratory distress Acute Tachypnea Acute
--- NOTE | 2018-06-02 18:01 | SOAPPROG ---
SOAP Progress Note Assessment/Plan: Assessment: Multi focal pulmonary infiltrates. Pseudomonas growing from bronch. On cefepime since 05/31. No other organisms identified. Continue bronchopulmonary therapies. Fungal and mycobacterial cultures remain pending but will take weeks to finalize. Aspergillus precipitants pending. Hypoxemia: Secondary to 1. Improving. COPD/emphysema. On bronchodilator therapies, low-dose prednisone. Possible cavity on CT scan with densities within. Fungal stains negative, cultures for Aspergillus pending as are Aspergillus antibodies. Plan: Continue cefepime. Continue bronchopulmonary therapies. Await further results from bronchoscopy. Continue diuresis with low-dose Lasix. Follow laboratory as needed. I will continue present treatment over the next several days, into early next week. For follow-up CT scan of the chest Monday, then will make decisions about further treatment options and disposition. All the above was discussed with the patient. Subjective: Feels better. Up walking independently in the halls with oxygen at 3-4 L. Little in the way of cough or mucus. Hallucinations resolved Objective: Vital Signs Temp Pulse Resp BP Pulse Ox 36.3 C 82 18 122/76 H 95 06/02/18 15:34 06/02/18 15:34 06/02/18 15:34 06/02/18 15:34 06/02/18 15:34 Microbiology 05/30/18 16:30 Gram Stain - Final Bronchial Washing - Bilateral Lobes Bronchial Culture - Final Pseudomonas Aeruginosa Laboratory Results 06/01/18 04:50 06/02/18 03:10 06/01/18 06/02/18 06/03/18 05:59 05:59 05:59 Intake Total 1600 120 Output Total 1500 Balance 100 120 PT 13.8 SEC (12.0-15.0) 05/28/18 23:12 INR 1.10 (0.83-1.16) 05/28/18 23:12 Cytologies from bronch wash: Negative. No fungal elements seen, and negative PCP, negative mycobacterial stain Physical Exam - Physical Exam General Appearance: alert, no apparent distress EENT: other (Nasal cannula in place at 2-4 L) Neck: normal inspection Respiratory: lungs clear, decreased breath sounds (At bases), No rales, No rhonchi Cardiac/Chest: regular rate, rhythm Abdomen: normal bowel sounds, non-tender, soft Skin: normal color, warm/dry Extremities: pedal edema (Trace +. Improved. Compression stockings in place.) Neuro/Psych: no motor/sensory deficits, No cognition abnormalities ICD10 Worksheet Patient Problems: Problems Problem Status Onset Chronic Disease Mgmt/Transitional care Acute Pneumonia Acute Hypoxia Acute Respiratory distress Acute Fever Acute Tachypnea Acute COPD (chronic obstructive pulmonary disease) Acute Acute respiratory failure with hypoxia Acute
[2018-06-02] MEDS: MELATONIN 3 MG TAB PO SCH (21:19)
[2018-06-03] MEDS: IPRATROPIUM/ALBUTEROL 3 ML DEYVIAL IH SCH ×4 (05:25→21:24)
[2018-06-03] MEDS: CEFEPIME HCL 2 GM in NS 100 ML IV SCH ×3 (05:34→22:05)
[2018-06-03] MEDS: LEVOTHYROXINE 100 MCG TAB PO SCH (05:34)
[2018-06-03] MEDS: predniSONE 10 MG TAB PO SCH (09:41)
[2018-06-03] MEDS: FUROSEMIDE 40 MG/4 ML VIAL IVP SCH (09:41)
[2018-06-03] MEDS: FLUTICASONE/SALMETER 500/50MCG DISKUS IH SCH ×2 (09:45→21:29)
[2018-06-03] MEDS ORDERED: POTASSIUM CL 10 MEQ TAB PO ONE (13:01)
[2018-06-03] MEDS: ENOXAPARIN 40 MG/0.4 ML SYR SC SCH (13:03)
--- NOTE | 2018-06-03 14:27 | HOSPPROG ---
Hospitalist Progress Note Assessment/Plan: DIAGNOSES: * Acute hypoxemic respiratory failure * Acute community-acquired pneumonia with Pseudomonas in a patient with moderately severe bronchiectatis and some scar (new diagnosis of bronchiectasis at this time * Worsening of emphysema since [address] scan * Right-sided congestive heart failure with pulmonary hypertension noted on echo (new diagnosis of both these) * Cavity or other Air Pocket in Fissure of L Lung with Pleural Lesions (new lesion on CT) - ? fungal, malignant or other cause * Acute encephalopathy with hallucinations, started at home with this acute illness: Have now resolved * Adenopathy of uncertain duration, noted on CT scan chest, likely related to the issues mentioned above * Spiculated lesion left lung anteriorly that does not appear much changed since 2016 likely largely scar and related to bronchiectasis but other possible etiologies exist * Hyperglycemia likely largely related to his steroid use at this time PLANS: * Antibiotics switched to cefepime on 05/30 * Await fungal cultures, may need to treat for that if any identified * Continue Lasix but will increase dose at this time (HCTZ discontinued) * 2 g sodium diet * Compression stockings and leg elevation as long-term management for edema * Avoid sedating medicines or other medicines with LOT ATTENDANT side effects * Repeat CT scan likely tomorrow * Potentially home next day or 2 * The patient sees Dr. 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 Little diuresis on I&O so far with low-dose Lasix Exam: alert oriented, relaxed skin warm dry color ok resps not labored lungs diminished BSs, no rales or wheeze heart regular abd soft nondistended nontender, bowel sounds present limbs warm, still with pitting edema bilaterally iv site ok LAB DATA: Electrolytes okay MICROBIOLOGY: Pseudomonas current now growing from bronchoscopy culture Negative for influenza a and B Fungal cultures pending ECHOCARDIOGRAM: (outpatient in March of this year) Pulmonary pressures were elevated at 50, with moderately dilated right ventricle He has mild aortic stenosis with peak gradient 24 mean 14, and some calcific valve s sclerosis at that position LV chambers were normal in size and EF at 59% IMAGING: I reviewed images from CT scan with no signs of malignancy, hemorrhage or other significant intracranial abnormality I reviewed images from chest x-ray done today. There is improvement in the infiltrates at the bases particularly notable in the left compared to the admission chest x-ray Objective: Vital Signs Temp Pulse Resp BP Pulse Ox 36.5 C 101 H 20 118/77 88 L 06/03/18 10:48 06/03/18 10:48 06/03/18 10:48 06/03/18 10:48 06/03/18 10:48 Microbiology 05/30/18 16:30 Gram Stain - Final Bronchial Washing - Bilateral Lobes Bronchial Culture - Final Pseudomonas Aeruginosa Laboratory Results 06/01/18 04:50 06/03/18 03:50 06/02/18 06/03/18 06/04/18 06:59 06:59 06:59 Intake Total 120 600 Balance 120 600 PT 13.8 SEC (12.0-15.0) 05/28/18 23:12 INR 1.10 (0.83-1.16) 05/28/18 23:12 ICD10 Worksheet Patient Problems: Problems Problem Status Onset Acute respiratory failure with hypoxia Acute COPD (chronic obstructive pulmonary disease) Acute Chronic Disease Mgmt/Transitional care Acute Fever Acute Hypoxia Acute Pneumonia Acute Respiratory distress Acute Tachypnea Acute
[2018-06-03] MEDS ORDERED: predniSONE 10 MG TAB PO SCH (16:50)
--- NOTE | 2018-06-03 16:50 | SOAPPROG ---
SOAP Progress Note Assessment/Plan: Assessment: Multi focal pulmonary infiltrates. Pseudomonas growing from bronch. On cefepime since 05/31. No other organisms identified. Continue bronchopulmonary therapies. Fungal and mycobacterial cultures remain pending but will take weeks to finalize. Aspergillus precipitants negative. Hypoxemia: Secondary to 1. Improving. COPD/emphysema. On bronchodilator therapies, low-dose prednisone. Possible cavity on CT scan with densities within. Fungal stains negative, cultures for Aspergillus pending as are Aspergillus antibodies. Plan: Continue cefepime. Continue bronchopulmonary therapies. Decreased prednisone. Await further results from bronchoscopy. Continue diuresis with low-dose Lasix. Follow laboratory as needed. Follow-up CT scan of the chest Monday, then will make decisions about further treatment options and disposition. Organism is sensitive to Levaquin. Hopefully home within the next couple a days. All the above was discussed with the patient. 06/03/18 16:51 Subjective: Continues to feel better. No cough or mucus at this point. No significant shortness of breath. Remains on oxygen at 2-3 L. Objective: Vital Signs Temp Pulse Resp BP Pulse Ox 36.5 C 84 16 118/77 94 06/03/18 10:48 06/03/18 16:03 06/03/18 16:03 06/03/18 10:48 06/03/18 16:03 Laboratory Results 06/01/18 04:50 06/03/18 03:50 06/02/18 06/03/18 06/04/18 05:59 05:59 05:59 Intake Total 120 325 275 Balance 120 325 275 PT 13.8 SEC (12.0-15.0) 05/28/18 23:12 INR 1.10 (0.83-1.16) 05/28/18 23:12 Physical Exam - Physical Exam General Appearance: alert, no apparent distress EENT: PERRL/EOMI, other (On O2 at 2 L) Neck: normal inspection (No JVD) Respiratory: lungs clear (Anteriorly), decreased breath sounds (At bases), rales (No significant rales), prolonged expiration, No rhonchi (No significant rhonchi, a little mucus heard centrally, no change with cough) Cardiac/Chest: regular rate, rhythm, No gallop Abdomen: normal bowel sounds, non-tender, soft Skin: normal color, warm/dry Extremities: pedal edema (Trace +, compression stockings in place) Neuro/Psych: no motor/sensory deficits, No cognition abnormalities ICD10 Worksheet Patient Problems: Problems Problem Status Onset Chronic Disease Mgmt/Transitional care Acute Pneumonia Acute Hypoxia Acute Respiratory distress Acute Fever Acute Tachypnea Acute COPD (chronic obstructive pulmonary disease) Acute Acute respiratory failure with hypoxia Acute
[2018-06-03] MEDS: MELATONIN 3 MG TAB PO SCH (22:05)
[2018-06-04] MEDS: IPRATROPIUM/ALBUTEROL 3 ML DEYVIAL IH SCH ×2 (05:31→09:53)
[2018-06-04] MEDS: LEVOTHYROXINE 100 MCG TAB PO SCH (06:00)
[2018-06-04] MEDS: CEFEPIME HCL 2 GM in NS 100 ML IV SCH ×2 (06:00→13:56)
--- NOTE | 2018-06-04 09:23 | HOSPPROG ---
Hospitalist Progress Note Assessment/Plan: #Acute hypoxemic resp failure: due to Pseudomonas PNA #Multifocal Pseudomonas PNA: improved on CT. d/w Dr. Berman who agrees DC on LQ; I detailed risks of tendon rupture, confusion, C diff an he acknowledged #Mod-severe bronchiectasis #Metabolic encephalopathy #Left lung cavity: fungal stains negative. Aspergillus studies pending #Adenopathy #Spiculated left lung lesion: similar to 2016 #Hyperglycemia: due to steroids #Pulm HTN/right-sided HF: resume HCTZ in next couple days; borderline BP here DC today Subjective: walking unit without issue Objective: Vital Signs Temp Pulse Resp BP Pulse Ox 36.5 C 75 14 123/74 H 95 06/04/18 08:00 06/04/18 08:00 06/04/18 08:00 06/04/18 08:00 06/04/18 08:00 Laboratory Results 06/01/18 04:50 06/04/18 03:10 06/03/18 06/04/18 06/05/18 05:59 05:59 05:59 Intake Total 325 1345 225 Balance 325 1345 225 PT 13.8 SEC (12.0-15.0) 05/28/18 23:12 INR 1.10 (0.83-1.16) 05/28/18 23:12 - Time Spent With Patient Time Spent with Patient: greater than 35 minutes Time Spent with Patient: Greater than 35 minutes spent on this patients care, greater than 50% of time spent counseling, educating, and coordinating care regarding the above mentioned plan. - Physical Exam Constitutional: no apparent distress Eyes: PERRL Ears, Nose, Mouth, Throat: moist mucous membranes Cardiovascular: regular rate and rhythym, No edema Respiratory: reduced air movement Gastrointestinal: normoactive bowel sounds Genitourinary: no bladder fullness Skin: warm Neurologic: AAOx3, CN II-XII Intact Psychiatric: interacting appropriately ICD10 Worksheet Patient Problems: Problems Problem Status Onset Acute respiratory failure with hypoxia Acute COPD (chronic obstructive pulmonary disease) Acute Chronic Disease Mgmt/Transitional care Acute Fever Acute Hypoxia Acute Pneumonia Acute Respiratory distress Acute Tachypnea Acute
[2018-06-04] MEDS: FLUTICASONE/SALMETER 500/50MCG DISKUS IH SCH (09:38)
[2018-06-04] MEDS: FUROSEMIDE 40 MG/4 ML VIAL IVP SCH (09:38)
[2018-06-04 11:24] VITALS: BP 90/61
--- NOTE | 2018-06-04 11:40 | ASMTCMCOM ---
CM Note CM Note Notes: Patients case discussed with Spencer GOMES. Patient had a CT this morning. Fungal culture pending. Patient currently on IV Cefepime. CM to follow. Plan: TBA Date Signed: 06/04/2018 11:38 AM Electronically Signed By:Juliana Ceballos
--- NOTE | 2018-06-04 14:00 | ASMTLACE ---
SHERICE Length of stay for Answers: 7-13 days current admission Acuity / Level of Answers: Yes Care: Did the patient have an inpatient admission? Comorbidities - select Answers: Chronic pulmonary disease all that apply Other Notes: Thyroid disease # of Emergency department Answers: 1-2 visits in the last 6 months Score: 12 Date Signed: 06/04/2018 01:51 PM Electronically Signed By:Juliana Ceballos
--- NOTE | 2018-06-04 14:01 | ASMTCMCOM ---
CM Note CM Note Notes: Patients case discussed with Dr Pacheco. Patient does not have any discharge needs. CM available for changes. Plan: Independent Date Signed: 06/04/2018 01:52 PM Electronically Signed By:Juliana Ceballos
--- NOTE | 2018-06-04 15:06 | PDHOMEO2F ---
Home Oxygen Face to Face Home Orders: I certify that a physician or a nurse practitioner or physician's resident programs assistant has had a [id number] encounter with this patient on the date of this order due to the diagnosis listed, which relates to the primary reason the patient requires home oxygen. Alternative treatments have been tried, or considered, and deemed ineffective. It is anticipated that supplemental oxygen will result in improvement with treatment. Home oxygen qualifying diagnosis: Multifocal PNA Home oxygen secondary diagnosis: Acute hypoxemic resp failure SpO2 on room air (%): 69 Frequency of home oxygen needed: continuous Home oxygen liters per minute: 2.5 Home oxygen delivery device: nasal cannula Concentrator: Yes E-tanks for mobility and back up: Yes If ordering portable O2, is the patient mobile in the home?: Yes I certify that, based on these findings, the home oxygen is medically necessary for this patient for the following length of time. Length of time home oxygen needed: 99 years
--- NOTE | 2018-06-04 17:45 | GDS ---
[f rep st] DISCHARGE SUMMARY DISCHARGE DIAGNOSES: 1. Acute hypoxemic respiratory failure. 2. Multifocal Pseudomonas pneumonia. 3. Moderate to severe bronchiectasis. 4. Metabolic encephalopathy. 5. Left lung cavitation. 6. Adenopathy. 7. A spiculated left lung lesion. 8. Hyperglycemia. 9. Pulmonary hypertension/right-sided heart failure. HISTORY OF PRESENT ILLNESS: A 73-year-old male with COPD, presents with severe shortness of breath. Noted myalgias several days before admission, and developed progressive shortness of breath and dry cough. He was severely hypoxemic to 50%. CTA showed multifocal pneumonia. HOSPITAL COURSE BY PROBLEM: 1. Acute hypoxemic respiratory failure secondary to Pseudomonas pneumonia. He was treated with cefepime once cultures returned. We will discharge on Levaquin. 2. Multifocal pneumonia, Pseudomonas: Improved on CT. Discussed with Dr. Berman, who agrees with discharge on Levaquin. I detailed risks including confusion,tendon rupture and C diff and he acknowledged. Total of 14 days abx. Aspergillus studies are pending. 3. Moderate severe bronchiectasis. Symptoms improved. 4. Metabolic encephalopathy, resolved. 5. Left lung cavitation: Fungal stains are negative. Lesion is improved with antibiotics. Aspergillus studies are pending. He will follow up with Dr. Berman in 2 weeks. Will likely need a repeat scan in 1-2 months. 6. Adenopathy: Again, improved with treatment. 7. Spiculated left lung lesion, similar to 2016. 8. Hyperglycemia due to steroids. 9. Pulmonary hypertension/right-sided heart failure: Was being diuresed here. Has had soft blood pressures last couple days, so will hold. He is to keep a log of his blood pressure at home for the next couple of days, resume hydrochlorothiazide if improved. DISPOSITION: Patient is stable for discharge home with oxygen. FOLLOWUP: 1. Dr. Moseley. 2. Dr. Ismael Berman. Time spent on discharge: Greater than 30 minutes at bedside counseling patient on medications, followup, and discussing case with Dr. Berman. /[id number]/MODL MTDD
--- NOTE | 2018-06-08 07:48 | PQFORM ---
PHYSICIAN QUERY FORM Needs Your Response This query form is being sent to you to assure this patient record is coded properly. Please respond to the question below: LANDING GEAR MECHANIC QUESTION: Dr Pacheco Sepsis was indicated in the H/P but the diagnosis was not carried through in Progress Notes nor in the Discharge Summary. Please clarify if this patient had Sepsis. x And addendum to DC summary was completed. __ Yes __ No __ Other (Please Specify ) __ Unable to determine Thank You Rissa SOLARES Electronics Maintenance Technician INSTRUCTIONS FOR RESPONSE: Answer question by clicking on the "Edit Document" button. Move cursor to area below the stars. When complete, hit "Save." Click on the "Sign" button, then click "Sign" again. Type in your PIN and hit "Enter." MTDD
== END 2018-06-04 15:18 | disposition home or self-care (01) | DRG 853 ==
LOC: F2W 05-29 10:07 → OBSVTOIN 05-29 17:51
PROVIDERS: ADMIT Student in an Organized Health Care Education/Training Program; ATTEND Internal Medicine
PROC: 0B9M8ZX Drainage of Bilateral Lungs, Via Natural or Artificial Opening Endoscopic, Diagnostic (ICD-10-PCS; principal; 2018-05-30 15:45)
DX: A41.9 Sepsis, unspecified organism (principal); J44.1 Chronic obstructive pulmonary disease with (acute) exacerbation; J44.0 Chronic obstructive pulmonary disease with (acute) lower respiratory infection; J15.1 Pneumonia due to Pseudomonas; J96.21 Acute and chronic respiratory failure with hypoxia; G93.40 Encephalopathy, unspecified; R73.9 Hyperglycemia, unspecified; T38.0X5A Adverse effect of glucocorticoids and synthetic analogues, initial encounter; I27.29 Other secondary pulmonary hypertension; J98.4 Other disorders of lung; E87.1 Hypo-osmolality and hyponatremia; E03.9 Hypothyroidism, unspecified; Z87.891 Personal history of nicotine dependence
CPT/HCPCS: 84484-ER; 86141-90; 96374; J0171; J0456; J0692; J0696; J1650; J1940; J2250; J2930; J3010; J7512; J7613; Q9967

== ENCOUNTER → 2018-06-28 | Outpatient (CLI) | payer OTHER, MEDICARE | LOC: FIMAGING 10:15 | PROVIDERS: ATTEND Internal Medicine Pulmonary Disease | DX: J18.9 Pneumonia, unspecified organism (principal) ==